=== PATIENT | male | born 1990 | race Two or more races ===

== ENCOUNTER 2020-01-31 10:58 | Outpatient (REF) | payer OTHER, SELFPAY ==
[2020-01-31 11:21] LABS: COVID-19 Test Negative (Negative)
== END 2020-01-31 10:59 | disposition home or self-care (01) ==
LOC: HO.LAB 10:58
PROVIDERS: Visit Provider Internal Medicine
DX: Z20.828 Contact with and (suspected) exposure to other viral communicable diseases (principal)
CPT/HCPCS: 87635

== ENCOUNTER 2020-02-26 12:55 | Outpatient (REF) | payer OTHER, SELFPAY ==
[2020-02-28 09:16] LABS: IDNOW Serial# 55D5AD1C
[2020-02-28 09:17] LABS: COVID-19 Test Negative (Negative)
== END 2020-02-26 12:56 | disposition home or self-care (01) ==
LOC: HO.EMPCOV 12:55
PROVIDERS: Visit Provider Internal Medicine
DX: Z20.828 Contact with and (suspected) exposure to other viral communicable diseases (principal)
CPT/HCPCS: 87635; C9803; U0003